=== PATIENT | male | born 1965 | race Caucasian/White ===

== ENCOUNTER 2020-11-26 16:15 | Emergency (ER) | payer OTHER, SELFPAY ==
--- NOTE | ~2020-11-26 | CT_ITS ---
EXAMINATION: CT HEAD/BRAIN WITHOUT CONTRAST CLINICAL INFORMATION: Status post fall COMPARISON: None. TECHNIQUE: CT scanning from base of skull to vertex performed without IV contrast administration. This CT examination was performed using dose optimization techniques as appropriate, variously including the following: *Automated exposure control *Adjustment of mA and/or kV according to patient size (this includes techniques or standardized protocols for targeted exams where dose is matched to indication/reason for exam; i.e. extremities or head) *Use of iterative reconstruction technique DLP: 886.17 mGy-cm. FINDINGS: There are some subarachnoid hemorrhage noted with largest amount seen about the frontal region. There is also noted to be intraventricular hemorrhage as well as falx subdural hematoma. No significant soft tissue swelling. There is mild prominence of ventricles, sulci, and cisterns consistent with atrophy.. No significant mass effect or midline structure shift is appreciated. Right frontal scalp hematoma present. No acute skull fracture. Pterygoid plates are intact. CT/CT head/brain wo con IMPRESSION: Subarachnoid and subdural hematomas as described with some intraventricular blood also noted. Right frontal scalp hematoma. Generalized atrophy. EXAMINATION: CT OF THE CERVICAL SPINE CLINICAL INFORMATION: [facility] [place] COMPARISON: None. TECHNIQUE: Thin helical images with sagittal and coronal reformats. This CT examination was performed using dose optimization techniques as appropriate, variously including the following: *Automated exposure control *Adjustment of mA and/or kV according to patient size (this includes techniques or standardized protocols for targeted exams where dose is matched to indication/reason for exam; i.e. extremities or head) *Use of iterative reconstruction technique DOSE: DLP 587.01 mGy-cm FINDINGS: There is motion artifact present. No abnormal prevertebral soft tissue swelling is seen. No acute cervical spine fracture is noted. There is some narrowing of the C4-5 and C5-6 disc space levels. No significant neural foraminal narrowing is seen. There is some scoliosis of the cervical spine convex right. Muscle fat planes are intact. The lung apices are clear. IMPRESSION: No acute cervical spine fracture. Degenerative disc disease C4-C6. This critical result was discussed with Dr. Antonio at 1845 on November 26, 2020 and it was ascertained that the content and urgency of the report was understood at the time of direct communication.
--- NOTE | ~2020-11-26 | CT_ITS ---
EXAMINATION: CT HEAD/BRAIN WITHOUT CONTRAST CLINICAL INFORMATION: Status post fall COMPARISON: None. TECHNIQUE: CT scanning from base of skull to vertex performed without IV contrast administration. This CT examination was performed using dose optimization techniques as appropriate, variously including the following: *Automated exposure control *Adjustment of mA and/or kV according to patient size (this includes techniques or standardized protocols for targeted exams where dose is matched to indication/reason for exam; i.e. extremities or head) *Use of iterative reconstruction technique DLP: 886.17 mGy-cm. FINDINGS: There are some subarachnoid hemorrhage noted with largest amount seen about the frontal region. There is also noted to be intraventricular hemorrhage as well as falx subdural hematoma. No significant soft tissue swelling. There is mild prominence of ventricles, sulci, and cisterns consistent with atrophy.. No significant mass effect or midline structure shift is appreciated. Right frontal scalp hematoma present. No acute skull fracture. Pterygoid plates are intact. CT/CT cervical spine wo con IMPRESSION: Subarachnoid and subdural hematomas as described with some intraventricular blood also noted. Right frontal scalp hematoma. Generalized atrophy. EXAMINATION: CT OF THE CERVICAL SPINE CLINICAL INFORMATION: [facility] [place] COMPARISON: None. TECHNIQUE: Thin helical images with sagittal and coronal reformats. This CT examination was performed using dose optimization techniques as appropriate, variously including the following: *Automated exposure control *Adjustment of mA and/or kV according to patient size (this includes techniques or standardized protocols for targeted exams where dose is matched to indication/reason for exam; i.e. extremities or head) *Use of iterative reconstruction technique DOSE: DLP 587.01 mGy-cm FINDINGS: There is motion artifact present. No abnormal prevertebral soft tissue swelling is seen. No acute cervical spine fracture is noted. There is some narrowing of the C4-5 and C5-6 disc space levels. No significant neural foraminal narrowing is seen. There is some scoliosis of the cervical spine convex right. Muscle fat planes are intact. The lung apices are clear. IMPRESSION: No acute cervical spine fracture. Degenerative disc disease C4-C6. This critical result was discussed with Dr. Antonio at 1845 on November 26, 2020 and it was ascertained that the content and urgency of the report was understood at the time of direct communication.
[2020-11-26 16:30] VITALS: BP 108/62; PULSE 60; RESP 16; O2SAT 98; BMI 22.4
[2020-11-26 18:45] VITALS: BP 145/96; PULSE 82; RESP 16; O2SAT 98
--- NOTE | 2020-11-26 19:02 | ED.FALL ---
HPI - Fall General Chief Complaint: Fall Stated Complaint: ground level fall Time Seen by Provider: 11/26/20 16:28 Source: patient Mode of arrival: ambulatory Limitations: no limitations History of Present Illness HPI Narrative: Patient is 55 years old with history of frontotemporal dementia diagnosed in 2018 admitted to [facility] on 11/10 discharge today to [facility] on 11/26 just 2 hours prior to arrival to our ER while patient is sitting on the chair he stood up and fell forward hitting his forehead to the ground patient is severely demented poor comprehension with severe dysarthria came with hematoma to the right frontal area. Patient is on aspirin no other injuries otherwise patient is at his baseline Related Data Allergies Allergy/AdvReac Type Severity Reaction Status Date / Time No Known Allergies Allergy Verified 11/26/20 16:29 Review of Systems Review of Systems: Yes Unobtainable due to mental status [facility] Past Medical History Medical History (Updated 11/27/20 @ 00:01 by Background Ethan) Alzheimer's dementia with behavioral disturbance Diabetes mellitus Social History Social History Alcohol intake: unknown Patient Tobacco Use Status: Tobacco use Unknown Use of substances other than those prescribed or required for medical reasons: No Advance Directives: No Advance Directives Information Provided: No Physical Exam Vital Signs: Vital Signs: Last Vital Signs Pulse 82 11/26/20 18:45 Resp 16 11/26/20 18:45 BP 145/96 H 11/26/20 18:45 Pulse Ox 98 11/26/20 18:45 Body Mass Index 22.4 Const: General: no acute distress and well developed Nutritional Appearance: thin Orientation/consciousness: oriented to person HENMT: Head: Yes normocephalic Head images: 1. Hematoma right forehead Eyes: General: appearance normal, both eyes and all related structures Conjunctivae: conjunctivae normal Pupils: Equal, round and reactive pupils present EOM: EOMs intact bilaterally Neck: Neck: Yes normal visual inspection and No midline deformity Chest: Chest palpation & inspection: normal inspection of the chest and normal palpation of entire chest wall Resp: Effort & Inspection: normal respiratory effort Auscultation: clear to auscultation bilaterally, no crackles and no rales Cardio: Palpation: normal PMI Rate: regular rate Rhythm: regular rhythm Heart sounds: S1 normal heart sound present and S2 normal heart sound present GI: Inspection: Yes normal to inspection Palpation (GI): Soft to palpation and nontender Auscultation: normal bowel sounds : General: Yes no CVA tenderness Back/Spine/Pelvis: Back: no CVA tenderness Thoracic/Lumbar Spine: thoracic and lumbar spine normal to inspection Skin: General skin exam: no rashes or lesions noted Neuro: Other: Severely demented rambling his words per family patient is more dysarthric than before. Moving his extremities to painful stimuli in purposeful manner no focal deficit, GCS of 11 General: oriented to person Cranial nerves: Yes Equal, round and reactive pupils present MDM - Fall MDM Narrative Medical decision making narrative: Patient with mechanical fall with subarachnoid and subdural hematoma with some intraventricular bleed without midline shift, on baby aspirin GCS of 11 , with severe dementia. Will transfer patient to [facility] case discussed with Dr. vargas accepted the patient patient's C-spine CT scan is negative Medical Records Attestation: I reviewed the patient's medical records. Lab Data Attestation: I reviewed the patient's lab results. Result diagrams: 11/26/20 19:01 11/26/20 19:01 Labs: Lab Results 11/26/20 11/26/20 11/26/20 Range/Units 19:01 19:01 19:01 WBC 11.9 H (4.8-10.8) X10*3/uL RBC 4.82 (4.60-5.80) X10*6/uL Hgb 15.9 (14.0-18.0) g/dl Hct 44.5 (42-52) % MCV 92.3 (80-98) fL MCH 33.0 (27.0-33.0) pg MCHC 35.7 (31.0-36.0) g/dl RDW 10.9 L (11.0-16.0) % Plt Count 283 (160-400) X10*3/uL MPV 9.1 L (9.4-12.4) fL Immature Gran % (Auto) 0.3 (0.0-0.4) % Neut % (Auto) 84.8 H (45-73) % Lymph % (Auto) 7.9 L (20-40) % [place] % (Auto) 6.6 (2-11) % Eos % (Auto) 0.2 (0-4) % Baso % (Auto) 0.2 (0-2) % Lymph # (Auto) 0.9 L (1.2-4.9) X10*3/uL [place] # (Auto) 0.8 (0.1-1.2) X10*3/uL Eos # (Auto) 0.0 (0.0-0.4) X10*3/uL Baso # (Auto) 0.0 (0.0-0.2) X10*3/uL Abs Immat Gran (auto) 0.03 (0.00-0.03) X10*3/uL Absolute Neuts (auto) 10.1 H (2.0-8.3) X10*3/uL Absolute Nucleated RBC 0.000 (0.0-0.012) X10*3/uL Nucleated RBC % (auto) 0.0 (0.0-0.2) /100WBC PT Cancelled INR Cancelled APTT (24.1-38.0) SEC Sodium 139 (135-145) mmol/L Potassium 3.9 (3.3-5.1) mmol/L Chloride 102 (96-108) mmol/L Carbon Dioxide 25 (22-29) mmol/L Anion Gap 16 (12-20) BUN 11 (9-16) mg/dL Creatinine 0.87 (0.5-1.4) mg/dL Estim Creat Clear Calc 101.5 Estimated GFR > 60 Random Glucose 105 (60-115) mg/dL Calcium 9.0 (8.4-10.2) mg/dL COVID-19 (GOPI) (Negative) COVID-19 Clin Com 11/26/20 11/26/20 Range/Units 19:01 19:48 WBC (4.8-10.8) X10*3/uL RBC (4.60-5.80) X10*6/uL Hgb (14.0-18.0) g/dl Hct (42-52) % MCV (80-98) fL MCH (27.0-33.0) pg MCHC (31.0-36.0) g/dl RDW (11.0-16.0) % Plt Count (160-400) X10*3/uL MPV (9.4-12.4) fL Immature Gran % (Auto) (0.0-0.4) % Neut % (Auto) (45-73) % Lymph % (Auto) (20-40) % [place] % (Auto) (2-11) % Eos % (Auto) (0-4) % Baso % (Auto) (0-2) % Lymph # (Auto) (1.2-4.9) X10*3/uL [place] # (Auto) (0.1-1.2) X10*3/uL Eos # (Auto) (0.0-0.4) X10*3/uL Baso # (Auto) (0.0-0.2) X10*3/uL Abs Immat Gran (auto) (0.00-0.03) X10*3/uL Absolute Neuts (auto) (2.0-8.3) X10*3/uL Absolute Nucleated RBC (0.0-0.012) X10*3/uL Nucleated RBC % (auto) (0.0-0.2) /100WBC PT 13.4 H INR 1.1 APTT 36.5 (24.1-38.0) SEC Sodium (135-145) mmol/L Potassium (3.3-5.1) mmol/L Chloride (96-108) mmol/L Carbon Dioxide (22-29) mmol/L Anion Gap (12-20) BUN (9-16) mg/dL Creatinine (0.5-1.4) mg/dL Estim Creat Clear Calc Estimated GFR Random Glucose (60-115) mg/dL Calcium (8.4-10.2) mg/dL COVID-19 (GOPI) Negative (Negative) COVID-19 Clin Com See Note Imaging Data CT scan - head: Attestation: I personally reviewed and interpreted this imaging study as follows: Radiologist's impression: [address] [id number] Scan ReportSigned Patient: Damaso Vásquez WMR#: [id number]: 1965Acct:[id number]/Sex: 55 / MADM Date: 11/26/20Loc: EDAttending Dr: Ordering Physician: Willy Murphy MD Date of Service: 11/26/20 Procedure(s): CT head/brain wo con Accession Number(s): [id number] cc: Willy Murphy MD~ EXAMINATION: CT HEAD/BRAIN WITHOUT CONTRAST CLINICAL INFORMATION: Status post fall COMPARISON: None. TECHNIQUE: CT scanning from base of skull to vertex performed without IV contrast administration. This CT examination was performed using dose optimization techniques as appropriate, variously including the following: *Automated exposure control *Adjustment of mA and/or kV according to patient size (this includes techniques or standardized protocols for targeted exams where dose is matched to indication/reason for exam; i.e. extremities or head) *Use of iterative reconstruction technique DLP: 886.17 mGy-cm. FINDINGS: There are some subarachnoid hemorrhage noted with largest amount seen about the frontal region. There is also noted to be intraventricular hemorrhage as well as falx subdural hematoma. No significant soft tissue swelling. There is mild prominence of ventricles, sulci, and cisterns consistent with atrophy.. No significant mass effect or midline structure shift is appreciated. Right frontal scalp hematoma present. No acute skull fracture. Pterygoid plates are intact. CT/CT head/brain wo con IMPRESSION: Subarachnoid and subdural hematomas as described with some intraventricular blood also noted. Right frontal scalp hematoma. Generalized atrophy. EXAMINATION: CT OF THE CERVICAL SPINE [place] [facility] [place]: None. TECHNIQUE: Thin helical images with sagittal and coronal reformats. This CT examination was performed using dose optimization techniques as appropriate, variously including the following: *Automated exposure control *Adjustment of mA and/or kV according to patient size (this includes techniques or standardized protocols for targeted exams where dose is matched to indication/reason for exam; i.e. extremities or head) *Use of iterative reconstruction technique DOSE: DLP 587.01 mGy-cm FINDINGS: There is motion artifact present. No abnormal prevertebral soft tissue swelling is seen. No acute cervical spine fracture is noted. There is some narrowing of the C4-5 and C5-6 disc space levels. No significant neural foraminal narrowing is seen. There is some scoliosis of the cervical spine convex right. Muscle fat planes are intact. The lung apices are clear. IMPRESSION: No acute cervical spine fracture. Degenerative disc disease C4-C6. This critical result was discussed with Dr. Antonio at 1845 on November 26, 2020 and it was ascertained that the content and urgency of the report was understood at the time of direct communication. ECG Data Attestation: I personally reviewed and interpreted this ECG as follows: Interpretation: Normal sinus rhythm heart rate 81 beats per minute left axis deviation no acute ST T wave changes no acute ischemia Discharge Plan Discharge Clinical Impression: Subarachnoid hemorrhage Patient Disposition: [facility] Transfer Details: To [facility] accepted by Dr. Vargas trauma Interventions: Acute Care Transfer Worksheet (ED) Last Done: 11/26/20 21:26 Discharge Date/Time: 11/26/20 20:00
[2020-11-26] MEDS: LORazepam 2 MG/ML VIAL IVPUSH (19:06)
[2020-11-26 19:08] LABS: MANUAL DIFF FLAG NO
[2020-11-26 19:09] LABS: Basophils Percent Auto 0.2 % (0-2); Eosinophils Percent Auto 0.2 % (0-4); Hematocrit 44.5 % (42-52); Hemoglobin 15.9 g/dl (14.0-18.0); Imm Gran Abs Auto 0.03 X10*3/uL (0.00-0.03); Imm Gran Pct Auto 0.3 % (0.0-0.4); Lymphocytes Absolute Auto 0.9 X10*3/uL (1.2-4.9); Lymphocytes Percent Auto 7.9 % (20-40); Mean Corpuscular HGB Conc 35.7 g/dl (31.0-36.0); Mean Corpuscular Volume 92.3 fL (80-98); Mean Platelet Volume 9.1 fL (9.4-12.4); Monocytes Absolute Auto 0.8 X10*3/uL (0.1-1.2); Monocytes Percent Auto 6.6 % (2-11); Neutrophils Absolute Auto 10.1 X10*3/uL (2.0-8.3); Neutrophils Percent Auto 84.8 % (45-73); Platelet Count 283 X10*3/uL (160-400); Red Blood Count 4.82 X10*6/uL (4.60-5.80); Red Cell Distribution Width 10.9 % (11.0-16.0); White Blood Count 11.9 X10*3/uL (4.8-10.8)
--- NOTE | 2020-11-26 19:12 | ECG_ITS ---
Test Reason : FALL Blood Pressure : / mmHG Vent. Rate : 081 BPM Atrial Rate : 080 BPM P-R Int : 000 ms QRS Dur : 108 ms QT Int : 424 ms P-R-T Axes : 000 -38 -03 degrees QTc Int : 492 ms Poor data quality Normal sinus rhythm Left axis deviation Cannot rule out Anterior infarct , age undetermined Abnormal ECG No previous ECGs available Please repeat Referred By: Willy Murphy Electronically Signed By:LOCO ALMAZAN MD
[2020-11-26 19:39] LABS: Anion Gap 16 (12-20); Blood Urea Nitrogen 11 mg/dL (9-16); Carbon Dioxide 25 mmol/L (22-29); Chloride 102 mmol/L (96-108); Creatinine Clr Calc Pharmacy 101.5; Estimated Glomerular Filt Rate > 60; Glucose Random 105 mg/dL (60-115); Potassium 3.9 mmol/L (3.3-5.1); Sodium 139 mmol/L (135-145)
[2020-11-26 19:47] LABS: Partial Thromboplastin Time 36.5 SEC (24.1-38.0)
[2020-11-26 19:50] LABS: INTERNATIONAL NORM RATIO 1.1 (0.9-1.1); Prothrombin Time 13.4 SEC (10.8-13.0)
--- NOTE | 2020-11-26 20:04 | PC.NURSE ---
REPORT GIVEN TO RN AT [facility]. PT TRANSPORTED TO [facility]. CARE RECEIVED FROM ALLEN COLEMAN AT 19:20.
[2020-11-26 20:47] LABS: COVID-19 Test Negative (Negative)
== END 2020-11-26 20:00 | disposition short-term general hospital (02) ==
PROVIDERS: Emergency Provider Internal Medicine; PCP Emergency Medicine
DX: S06.6X0A Traumatic subarachnoid hemorrhage without loss of consciousness, initial encounter (principal); W07.XXXA Fall from chair, initial encounter; G30.9 Alzheimer's disease, unspecified; F02.81 Dementia in other diseases classified elsewhere, unspecified severity, with behavioral disturbance; E11.9 Type 2 diabetes mellitus without complications; Z20.822 Contact with and (suspected) exposure to COVID-19; Y93.89 Activity, other specified; Y92.129 Unspecified place in nursing home as the place of occurrence of the external cause; Y99.9 Unspecified external cause status; Z79.82 Long term (current) use of aspirin
CPT/HCPCS: 36415; 70450; 72125; 80048; 85025; 85610; 85730; 87635; 93005; 96374; 99285; J2060